=== PATIENT | female | born 1960 | race Caucasian/White ===

== ENCOUNTER 2022-10-26 18:46 | Emergency (ER) | payer OTHER, SELFPAY ==
--- NOTE | ~2022-10-26 | XR_ITS ---
EXAM: XR knee RT min 4V DATE: 10/26/2022 19:08 HISTORY: Fall with Pain . COMPARISON: None available. FINDINGS: Normal mineralization. No fracture or dislocation. No lytic or blastic lesion. Tricompartm ental osteoarthritis. Small volume joint effusion. Quadriceps enthesopathy No erosion or periosteal c hange. Varicose veins. Soft tissue swelling anterior to the patella and patellar tendon. IMPRESSION: No acute osseous finding in the right knee. Anterior soft tissue swelling. Reviewed, dictated and finalized at location K. IMPRESSION: No acute osseous finding in the right knee. Anterior soft tissue sw elling.
[2022-10-26 18:54] VITALS: BP 151/80; PULSE 83; RESP 19; TEMP 37.1; O2SAT 100
--- NOTE | 2022-10-26 20:24 | ED.LOWEXIN ---
HPI - Extremity Injury (Lower) General Chief Complaint: Extremity Injury, Lower <LENY Warren Last Filed: 10/27/22 02:42> Stated Complaint: R knee pain <LENY Warren Last Filed: 10/27/22 02:42> Time Seen by Provider: 10/26/22 19:01 <LENY Warren Last Filed: 10/27/22 02:42> History of Present Illness HPI Narrative: 62-year-old female reports for right knee pain after she twisted her knee while working in the yard today. Patient states her lab ran a binder with a brown stick, she is up a stick at a corner and thought was a snake, began running and got her right foot stuck under a board causing her to externally rotate her knee. She states she was immediately able to walk, however as time is passed it has become more difficult to bear weight. She reports icing it with some relief has not taken any medications for pain. States she has walkers and wheelchairs at home for ambulation if needed. <LENY Warren Last Filed: 10/27/22 02:42> Related Data Allergies/Adverse Reactions: Allergies Allergy/AdvReac Type Severity Reaction Status Date / Time No Known Allergies Allergy Verified 10/26/22 20:28 <Miranda Molina PA-C - Last Filed: 10/27/22 02:42> Review of Systems Review of Systems: CONSTITUTIONAL: Denies fever, chills EYES: Denies visual changes, redness, or discharge. ENT: Denies rhinorrhea, congestion, sore throat, or otalgia. CARDIOVASCULAR: Denies chest pain, palpitations, or edema. RESPIRATORY: Denies cough or dyspnea. GASTROINTESTINAL: Denies abdominal pain, nausea, vomiting, or diarrhea. GENITOURINARY: Denies dysuria or hematuria. SKIN: Denies rash or itching. MUSCULOSKELETAL: See HPI NEUROLOGIC: Denies headache, numbness, dizziness, or weakness. PSYCHIATRIC: Denies anxiety or depression. <LENY Warren Last Filed: 10/27/22 02:42> Exam Narrative: GENERAL: Well-appearing, in no acute distress. HEAD: Normocephalic NECK: Supple. CHEST: No respiratory distress. Clear to auscultation, no adventitious breath sounds. HEART: Regular rate and rhythm. No murmur heard. Normal peripheral pulses. EXTREMITIES: RLE: Generalized edema to the anterior right knee. Tenderness to palpation of the quad and patellar tendon and lateral and medial joint lines. Full extension appreciated. Limited flexion to 90 degrees. Negative anterior posterior drawer, no laxity with varus or valgus stress. Sensation intact distally. DP pulse 2+. Cap refill less than 2. No overlying skin changes, abrasions or ecchymosis. SKIN: Warm, dry, no rash. NEURO: No focal deficits. Alert and oriented x3. PSYCH: Normal mood and affect. <Miranda Molina PA-C - Last Filed: 10/27/22 02:42> Course HEALTH CARE / MEDICAL JOB TITLES/PA Physician Supervision This is a was performed by both a physician and an APC. I performed all aspects of the MDM as documented w/ the following additions: 62-year-old presenting after a knee injury. X-rays were negative for acute osseous injury. Patient placed in a Ramone bandage and given primary care follow-up.All questions answered. Patient in agreement w/ disposition. <Saturnino Cortes MD - Last Filed: 11/05/22 21:19> Vital Signs Vital signs: Vital Signs Temperature 98.8 F 10/26/22 18:54 Pulse Rate 83 10/26/22 18:54 Respiratory Rate 19 10/26/22 18:54 Blood Pressure 151/80 H 10/26/22 18:54 Pulse Oximetry 100 10/26/22 18:54 Oxygen Delivery Room Air 10/26/22 18:54 Temperature 98.8 F 10/26/22 18:54 Pulse Rate 81 10/26/22 20:43 Respiratory Rate 18 10/26/22 20:43 Blood Pressure 148/82 H 10/26/22 20:43 Pulse Oximetry 99 10/26/22 20:43 Oxygen Delivery Room Air 10/26/22 18:54 <Miranda Molina PA-C - Last Filed: 10/27/22 02:42> Vital Signs Temperature 98.8 F 10/26/22 18:54 Pulse Rate 83 10/26/22 18:54 Respiratory Rate 19 10/26/22 18:54 Blood Pressure 151/80 H 10/26/22 18:54 Pu
[2022-10-26] MEDS: IBUPROFEN 600 MG TABLET PO (20:38)
[2022-10-26] MEDS: CYCLOBENZAPRINE HCL 10 MG TABLET PO (20:39)
[2022-10-26 20:43] VITALS: BP 148/82; PULSE 81; RESP 18; O2SAT 99
== END 2022-10-26 20:44 | disposition home or self-care (01) ==
PROVIDERS: Emergency Provider Physician Assistant; PCP Family Medicine Sports Medicine
DX: S83.91XA Sprain of unspecified site of right knee, initial encounter (principal); X50.0XXA Overexertion from strenuous movement or load, initial encounter; Y92.007 Garden or yard of unspecified non-institutional (private) residence as the place of occurrence of the external cause
CPT/HCPCS: 73564; 99283; A9270